=== PATIENT | female | born 1975 | race Caucasian/White ===

== ENCOUNTER 2020-12-10 | Emergency (ER) | payer SELFPAY ==
[2020-12-10] MEDS ORDERED: ZYRTEC10 MG PO (11:32)
[2020-12-10] MEDS ORDERED: OMEPRAZOLE10 MG PO (11:32)
[2020-12-10] MEDS ORDERED: ZITHROMAX500 MG PO (12:43)
== END 2020-12-10 12:55 | disposition home or self-care (01) | DRG 153 ==
DX: J06.9 Acute upper respiratory infection, unspecified (principal); J45.909 Unspecified asthma, uncomplicated; Z20.822 Contact with and (suspected) exposure to COVID-19

== ENCOUNTER 2021-01-29 16:57 | Emergency (ER) | payer SELFPAY ==
[~2021-01-29] VITALS: Ht 172.7 cm; Wt 78.0 kg
[~2021-01-29 16:57] MED LIST: OMEPRAZOLE10 MG PO; ZITHROMAX500 MG PO; ZYRTEC10 MG PO
[2021-01-29 17:16] VITALS: BP 102/43
[2021-01-29] MEDS ORDERED: CHERATUSSIN PO (18:26)
[2021-01-29] MEDS ORDERED: ZPAK PO (18:27)
[2021-01-29] MEDS ORDERED: PREDNISONE50 MG PO (18:27)
[2021-01-29] MEDS ORDERED: PROAIR HFA108 MCG/AC PO (18:27)
== END 2021-01-29 18:45 | disposition home or self-care (01) | DRG 203 ==
LOC: ED 16:57
DX: J45.909 Unspecified asthma, uncomplicated (principal); Z20.822 Contact with and (suspected) exposure to COVID-19

== ENCOUNTER 2021-02-11 11:00 | Emergency (ER) | payer SELFPAY ==
[~2021-02-11] VITALS: Ht 172.7 cm; Wt 84.0 kg
[~2021-02-11 11:00] MED LIST changes: +CHERATUSSIN PO; +PREDNISONE50 MG PO; +PROAIR HFA108 MCG/AC PO; +ZPAK PO
[2021-02-11] MEDS ORDERED: PREDNISONE50 MG PO (12:43)
[2021-02-11] MEDS ORDERED: CHERATUSSIN PO (12:43)
[2021-02-11] MEDS ORDERED: AMOXICILLIN500 M2 PO (12:43)
[2021-02-11 12:49] VITALS: BP 121/56
== END 2021-02-11 12:50 | disposition home or self-care (01) | DRG 203 ==
LOC: ED 11:00
DX: J45.909 Unspecified asthma, uncomplicated (principal); Z87.891 Personal history of nicotine dependence

== ENCOUNTER 2022-07-30 01:04 | Emergency (ER) | payer SELFPAY ==
[~2022-07-30] VITALS: Ht 172.7 cm; Wt 75.0 kg
[~2022-07-30 01:04] MED LIST changes: +AMOXICILLIN500 M2 PO
[2022-07-30 01:19] VITALS: BP 92/59
[2022-07-30] MEDS ORDERED: AMOXICILLIN250 M1 PO (01:29)
[2022-07-30 01:30] VITALS: BP 109/63
[2022-07-30] MEDS ORDERED: BACTRIM DS1 TAB PO (01:49)
[2022-07-30 01:50] VITALS: BP 109/63
[2022-07-31] MEDS ORDERED: BACTRIM DS1 TAB PO (20:25)
[2022-07-31] MEDS ORDERED: CEPHALEXIN500 MG PO (20:25)
[2022-07-31] MEDS ORDERED: LORTAB 1010 MG PO (20:30)
[2022-08-01] MEDS ORDERED: LORTAB 1010 MG PO (09:56)
== END 2022-07-30 02:05 | disposition home or self-care (01) | DRG 603 ==
LOC: ED 01:04
DX: L02.411 Cutaneous abscess of right axilla (principal)

== ENCOUNTER 2022-07-31 17:33 | Emergency (ER) | payer SELFPAY ==
[~2022-07-31] VITALS: Ht 172.7 cm; Wt 74.0 kg
[~2022-07-31 17:33] MED LIST changes: +AMOXICILLIN250 M1 PO; +BACTRIM DS1 TAB PO
[2022-07-31 17:41] VITALS: BP 121/54
[2022-07-31 18:13] LABS: HEMATOCRIT 33.9 % (37.0-47.0); IMMATURE GRANULOCYTES 0.2 % (0.0-5.0); MEAN CELL VOLUME 98.8 fL CALC (80.0-100.0); MEAN CORPUSCULAR HGB 32.1 pG CALC (26.0-32.0); MEAN CORPUSCULAR HGB CONC 32.4 g/dL CAL (32.0-36.0); NEUT# 7.2 thou/uL (2.00-7.15); RED BLOOD COUNT 3.43 mill/uL (4.20-5.60); RED CELL DISTRI WIDTH 12.6 % (11.5-15.5)
[2022-07-31 18:27] LABS: ALBUMIN 3.8 g/dL (3.2-5.0); ALKALINE PHOSPHATASE 76 u/l (38-126); ANION GAP 13 (6-22 (CALC)); BILIRUBIN, TOTAL 0.1 mg/dL (0.0-1.4); BUN 17 mg/dL (7-17); BUN/CREATININE RATIO 25 (12-20 (CALC)); CARBON DIOXIDE 28 mmol/l (22-30); CHLORIDE 108 mmol/l (95-108); CREATININE 0.7 mg/dL (0.5-1.0); GFR FOR AFR.AMER. > 60 ML/MIN (>=60 (CALC)); GFR OTHER RACES > 60 ML/MIN (>=60 (CALC)); POTASSIUM 3.4 mmol/l (3.5-5.1); SGOT/AST 25 u/l (14-36); SODIUM 145 mmol/l (137-146)
[2022-07-31] MEDS ORDERED: BACTRIM DS1 TAB PO (20:25)
[2022-07-31] MEDS ORDERED: CEPHALEXIN500 MG PO (20:25)
[2022-07-31 20:28] VITALS: BP 121/54
[2022-07-31] MEDS ORDERED: LORTAB 1010 MG PO (20:30)
[2022-08-01] MEDS ORDERED: LORTAB 1010 MG PO (09:56)
== END 2022-07-31 21:25 | disposition home or self-care (01) | DRG 951 ==
LOC: ED 17:33
PROVIDERS: Family Medicine
DX: Z48.01 Encounter for change or removal of surgical wound dressing (principal)
CPT/HCPCS: Q9967

== ENCOUNTER 2022-08-03 08:31 | Emergency (ER) | payer SELFPAY ==
[~2022-08-03] VITALS: Ht 172.7 cm; Wt 74.1 kg
[~2022-08-03 08:31] MED LIST changes: +CEPHALEXIN500 MG PO; +LORTAB 1010 MG PO
[2022-08-03 08:36] VITALS: BP 130/64
[2022-08-03 08:46] VITALS: BP 108/58
[2022-08-03 08:59] VITALS: BP 108/58
== END 2022-08-03 08:55 | disposition home or self-care (01) | DRG 951 ==
LOC: ED 08:31
DX: Z48.00 Encounter for change or removal of nonsurgical wound dressing (principal)